=== PATIENT | male | born 1995 | race American Indian/Alaskan Native ===

== ENCOUNTER 2019-03-10 13:28 | Emergency (ER) | payer SELFPAY ==
[2019-03-10 13:32] VITALS: BP 146/96
--- NOTE | 2019-03-10 13:35 | Event Note ---
ED Screening Note Date of service: 03/10/19 Time: 13:33 ED Screening Note: Pt complains of body aches, AG, cough, and malaise x 5 days states symptoms started over a week ago, got better and now are worse +SOB This initial assessment/diagnostic orders/clinical plan/treatment(s) is/are subject to change based on patients health status, clinical progression and re- assessment by fellow clinical providers in the ED. Further treatment and workup at subsequent clinical providers discretion. Patient/guardian urged not to elope from the ED as their condition may be serious if not clinically assessed and managed. Initial orders include: ACC CXR
--- NOTE | 2019-03-10 14:13 | XRay Report ---
CHEST 1 VIEW INDICATION / CLINICAL INFORMATION: cough, shortness of breath. FINDINGS: The lungs are well-inflated and clear. Normal cardiomediastinal silhouette. No pleural fluid or pneum othorax. Signer Name: Alcon Rasheed MD Signed: 03/10/2019 2:09 PM Workstation Name: [id number]
--- NOTE | 2019-03-10 16:29 | Emergency Department Report ---
Blank Doc - Documentation Documentation: I went to evaluate patient in exam room and no one was present in the room, it appears patient has eloped from the emergency department, I never evaluated patient
== END 2019-03-10 15:36 | disposition left against medical advice (07) ==
LOC: ED 13:28
DX: J11.1 Influenza due to unidentified influenza virus with other respiratory manifestations (principal); Z53.21 Procedure and treatment not carried out due to patient leaving prior to being seen by health care provider
CPT/HCPCS: 71046

== ENCOUNTER 2019-04-26 05:13 | Emergency (ER) | payer SELFPAY ==
[2019-04-26 05:32] VITALS: BP 127/80
[2019-04-26] MEDS ORDERED: IBUPROFEN 600 MG TAB PO ONE (05:45)
[2019-04-26 06:33] LABS: Basophils # (Auto) 0.1 K/mm3 (0.0-0.1); Basophils % (Auto) 0.7 % (0.0-1.8); Eosinophils # (Auto) 0.1 K/mm3 (0.0-0.4); Eosinophils % (Auto) 1.1 % (0.0-4.3); Hemoglobin 15.2 gm/dl (11.8-15.2); Lymphocytes # (Auto) 1.4 K/mm3 (1.2-5.4); Lymphocytes % (Auto) 17.3 % (13.4-35.0); Mean Corpuscular HGB Conc 34 % (32-34); Mean Corpuscular Volume 95 fl (84-94); Monocytes # (Auto) 0.9 K/mm3 (0.0-0.8); Monocytes % (Auto) 11.3 % (0.0-7.3); Platelet Count 189 K/mm3 (140-440); Red Blood Count 4.74 M/mm3 (3.65-5.03)
--- NOTE | 2019-04-26 06:44 | Emergency Department Report ---
- General Chief Complaint: Upper Respiratory Infection Stated Complaint: FEVER/CONGESTION/HEADACHE Time Seen by Provider: 04/26/19 06:30 Source: patient Mode of arrival: Ambulatory Limitations: No Limitations - History of Present Illness Initial Comments: Mr. Morales is a 24-year-old male who presents for cough fever chills body aches x3 days cough is productive green.. Patient states mother with pneumonia that he has been caring for and now he has a similar symptom. . Patient denies nausea vomiting. There is some nocturnal wheezing no wheezing noted at this time. Symptoms are exacerbated by activity. Symptoms are relieved by rest. Fever is improved with ibuprofen. MD Complaint: fever, cough, sore throat, rhinorrhea, nasal congestion, sinus pa in -: days(s) Severity: moderate Severity scale (0 -10): 5 Quality: sharp Consistency: constant Improves With: rest Worsens With: activity Context: sick contacts Associated Symptoms: fever, chills, myalgias, rhinorrhea, nasal congestion, cough, chest pain (with cough ), shortness of breath. denies: nausea, vomiting - Related Data Previous Rx's Medication Instructions Recorded Last Taken Type Albuterol INH(or & Nicu Only) 2 puff IH QID PRN #8.5 gram 04/26/19 Unknown Rx [ProAir HFA Inhaler] Azithromycin [Zithromax Z-LATANYA] 250 mg PO DAILY #6 tab 04/26/19 Unknown Rx Benzonatate [Tessalon Perles] 100 mg PO Q8HR PRN #30 capsule 04/26/19 Unknown Rx Ibuprofen [Motrin 800 MG tab] 800 mg PO Q8HR PRN #30 tablet 04/26/19 Unknown Rx predniSONE [Deltasone] 40 mg PO DAILY #10 tablet 04/26/19 Unknown Rx Allergies Allergy/AdvReac Type Severity Reaction Status Date / Time No Known Allergies Allergy Verified 04/26/19 05:48 ED Review of Systems ROS: Stated complaint: FEVER/CONGESTION/HEADACHE Other details as noted in HPI Constitutional: chills, fever, malaise Eyes: denies: eye pain, eye discharge, vision change ENT: ear pain, throat pain, congestion Respiratory: cough, shortness of breath, wheezing Cardiovascular: chest pain (chest wall pain with cough ). denies: palpitations Endocrine: no symptoms reported Gastrointestinal: denies: abdominal pain, nausea, vomiting, diarrhea Genitourinary: denies: urgency, dysuria, frequency, hematuria Musculoskeletal: denies: back pain, joint swelling, arthralgia Skin: denies: rash, lesions Neurological: denies: headache, weakness, paresthesias Psychiatric: denies: anxiety, depression Hematological/Lymphatic: denies: easy bleeding, easy bruising ED Past Medical Hx - Past Medical History Previous Medical History?: No - Surgical History Past Surgical History?: No - Social History Smoking Status: Current Every Day Smoker Substance Use Type: Alcohol - Medications Home Medications: Home Medications Medication Instructions Recorded Confirmed Last Taken Type Albuterol INH(or & Nicu Only) 2 puff IH QID PRN #8.5 gram 04/26/19 Unknown Rx [ProAir HFA Inhaler] Azithromycin [Zithromax Z-LATANYA] 250 mg PO DAILY #6 tab 04/26/19 Unknown Rx Benzonatate [Tessalon Perles] 100 mg PO Q8HR PRN #30 capsule 04/26/19 Unknown Rx Ibuprofen [Motrin 800 MG tab] 800 mg PO Q8HR PRN #30 tablet 04/26/19 Unknown Rx predniSONE [Deltasone] 40 mg PO DAILY #10 tablet 04/26/19 Unknown Rx ED Physical Exam - General Limitations: No Limitations General appearance: alert, in no apparent distress - Head Head exam: Present: atraumatic, normocephalic - Eye Eye exam: Present: normal appearance, PERRL, EOMI Pupils: Present: normal accommodation - ENT ENT exam: Present: mucous membranes moist - Expanded ENT Exam Expanded TM/Canal exam: Erythema: Left TM, Right TM Throat exam: Positive: tonsillar erythema, tonsillomegaly, other (uvula midline no exudate no lesions no stridor ). Negative: tonsillar exudate, R peritonsillar mass, L peritonsillar mass - Neck Neck exam: Present: normal inspection, full ROM, lymphadenopathy. Absent: tenderness, meningismus, thyromegaly - Respiratory Respiratory exam: Present: normal lung sounds bilaterally, rhonchi (clear with cough ), chest wall tenderness (right lateral ). Absent: respiratory distress, wheezes, rales, stridor - Cardiovascular Cardiovascular Exam: Present: regular rate, normal rhythm, normal heart sounds. Absent: systolic murmur, diastolic murmur, rubs, gallop - GI/Abdominal GI/Abdominal exam: Present: soft, normal bowel sounds. Absent: distended, tenderness, guarding, rebound, rigid, bruit, hernia - Rectal Rectal exam: Present: deferred - Extremities Exam Extremities exam: Present: normal inspection, full ROM, normal capillary refill. Absent: tenderness - Back Exam Back exam: Present: normal inspection, full ROM. Absent: tenderness, CVA tenderness (R), CVA tenderness (L), rash noted - Neurological Exam Neurological exam: Present: alert, oriented X3, CN II-XII intact, normal gait, reflexes normal. Absent: motor sensory deficit - Psychiatric Psychiatric exam: Present: normal affect, normal mood - Skin Skin exam: Present: warm, dry, intact, normal color. Absent: rash ED Course Vital Signs 04/26/19 05:24 Temperature 100.5 F H Pulse Rate 95 H Respiratory 18 Rate Blood Pressure 127/80 O2 Sat by Pulse 97 Oximetry ED Medical Decision Making - Lab Data Result diagrams: 04/26/19 06:02 Labs 04/26/19 06:02 WBC 8.2 RBC 4.74 Hgb 15.2 Hct 45.0 MCV 95 H MCH 32 MCHC 34 RDW 14.0 Plt Count 189 Lymph % (Auto) 17.3 [place] % (Auto) 11.3 H Eos % (Auto) 1.1 Baso % (Auto) 0.7 Lymph # 1.4 [place] # 0.9 H Eos # 0.1 Baso # 0.1 Seg Neutrophils % 69.6 Seg Neutrophils # 5.7 - Radiology Data Radiology results: image reviewed ? infiltrate Left upper lobe - Medical Decision Making This is CAP , bronchitis. Plan. Azithromycin, albuterol, prednisone, Tessalon Perles, ibuprofen as needed pain. Hydrate follow-up with PCP in 2 to 3 days return to ED should symptoms worsen. Patient verbalizes agreement and understanding with discharge plan DC to home in stable condition at this time Critical care attestation.: If time is entered above; I have spent that time in minutes in the direct care of this critically ill patient, excluding procedure time. ED Disposition Clinical Impression: CAP (community acquired pneumonia) Qualifiers: Laterality: left Lung location: upper lobe of lung Qualified Code(s): J18.9 - Pneumonia, unspecified organism Disposition: DC-01 TO HOME OR SELFCARE Is pt being admited?: No Does the pt Need Aspirin: No Condition: Stable Instructions: Bacterial Pneumonia (ED), Community-acquired Pneumonia (ED) Prescriptions: predniSONE [Deltasone] 40 mg PO DAILY #10 tablet Ibuprofen [Motrin 800 MG tab] 800 mg PO Q8HR PRN #30 tablet PRN Reason: fever pain Albuterol INH(or & Nicu Only) [ProAir HFA Inhaler] 2 puff IH QID PRN #8.5 gram PRN Reason: Shortness Of Breath Benzonatate [Tessalon Perles] 100 mg PO Q8HR PRN #30 capsule PRN Reason: Cough Azithromycin [Zithromax Z-LATANYA] 250 mg PO DAILY #6 tab Referrals: SERAFIN BAEZ MD [Staff Physician] - 3-5 Days Forms: Work/School Release Form(ED) Time of Disposition: 06:49
[2019-04-26 06:54] LABS: Alanine Aminotransferase 8 units/L (7-56); Albumin 4.1 g/dL (3.9-5); BUN/Creatinine Ratio 13; Blood Urea Nitrogen 13 mg/dL (9-20); Calcium 9.1 mg/dL (8.4-10.2); Hemolysis Index 5
--- NOTE | 2019-04-26 07:21 | XRay Report ---
CHEST 2 VIEWS INDICATION / CLINICAL INFORMATION: productive cough. COMPARISON: 03/10/2019 FINDINGS: SUPPORT DEVICES: None. HEART / MEDIASTINUM: No significant abnormality. LUNGS / PLEURA: There is parenchymal density in the right upper lobe near the apex which has a somewh at nodular appearance. This has improved since the prior exam but has not entirely resolved. .No pneu mothorax. ADDITIONAL FINDINGS: No significant additional findings. IMPRESSION: 1. There is persistent parenchymal density in the right upper lobe in the apex with somewhat nodular appearance. This could represent a persistent or recurrent pneumonia. Possibility that this represent s an atypical infection is included in the differential diagnosis. Signer Name: Mehrdad Scott MD Signed: 04/26/2019 7:17 AM Workstation Name: [id number]
== END 2019-04-26 06:53 | disposition home or self-care (01) ==
LOC: ED 05:13
DX: J18.9 Pneumonia, unspecified organism (principal); F17.200 Nicotine dependence, unspecified, uncomplicated; Z79.899 Other long term (current) drug therapy
CPT/HCPCS: 36415; 71046; 80053; 85025